=== PATIENT | male | born 1945 | race Caucasian/White ===

== ENCOUNTER 2021-08-22 22:59 | Emergency (ER) | payer OTHER ==
[~2021-08-22 22:59] MED LIST: ELIQUIS5 MG PO; FLOMAX0.4 MG PO; KEFLEX250 MG PO; LOPRESSOR50 MG PO; TERAZOSIN 2 MG C2 MG PO; TRIAMTERENE-HC1 EACH PO; VIBRAMYCIN100 MG PO; ZOCOR20 MG PO
[2021-08-22 23:53] LABS: BILIRUBIN NEGATIVE (NEGATIVE); BLOOD NEGATIVE Ery/uL (NEGATIVE); CLARITY CLEAR (CLEAR); COLOR YELLOW (YELLOW); GLUCOSE (U) NORMAL (NORMAL); LEUKOCYTES NEGATIVE Leu/uL (NEGATIVE); NITRITE NEGATIVE (NEGATIVE); PROTEIN NEGATIVE (NEGATIVE); SPECIFIC GRAVITY 1.015 (1.001-1.030); UROBILINOGEN 0.2 mg/dL (0.2-1.0); pH 6.5 (5.0-9.0)
== END 2021-08-23 01:52 | disposition home or self-care (01) ==
LOC: FER 22:59
PROVIDERS: Emergency Medicine
DX: R33.9 Retention of urine, unspecified (principal)
CPT/HCPCS: 81003

== ENCOUNTER 2021-08-25 07:18 | Emergency (ER) | payer OTHER ==
[2021-08-25 08:23] LABS: BILIRUBIN NEGATIVE (NEGATIVE); BLOOD 3+ Ery/uL (NEGATIVE); CLARITY CLEAR (CLEAR); COLOR YELLOW (YELLOW); GLUCOSE (U) NORMAL (NORMAL); LEUKOCYTES NEGATIVE Leu/uL (NEGATIVE); NITRITE NEGATIVE (NEGATIVE); PROTEIN NEGATIVE (NEGATIVE); SPECIFIC GRAVITY 1.015 (1.001-1.030); UROBILINOGEN 0.2 mg/dL (0.2-1.0)
== END 2021-08-25 08:22 | disposition home or self-care (01) ==
LOC: FER 07:18
PROVIDERS: Internal Medicine
DX: R33.9 Retention of urine, unspecified (principal); R39.89 Other symptoms and signs involving the genitourinary system; I48.91 Unspecified atrial fibrillation; I10 Essential (primary) hypertension; Z79.01 Long term (current) use of anticoagulants; Z79.899 Other long term (current) drug therapy
CPT/HCPCS: 81001; 87088